=== PATIENT | female | born 1990 | race Caucasian/White ===

== ENCOUNTER 2018-12-04 13:03 | Emergency (ER) | payer OTHER ==
[~2018-12-04] VITALS: Ht 172.7 cm; Wt 81.7 kg
[2018-12-04] MEDS ORDERED: CELEXA10 MG PO (13:15)
[2018-12-04] MEDS ORDERED: FLONASE 0.05%50 MCG NASAL (13:15)
[2018-12-04] MEDS ORDERED: GABAPENTIN 100100 MG PO (13:15)
[2018-12-04] MEDS ORDERED: WELLBUTRIN 100100 MG PO (13:15)
[2018-12-04] MEDS ORDERED: AMOXICILLIN875 MG PO (13:25)
[2018-12-04] MEDS ORDERED: Magic Mouthwash SWISH&SPIT (13:25)
[2018-12-04] MEDS ORDERED: TUSSIONEX PENN115 ML PO (13:25)
[2018-12-04] MEDS ORDERED: ZOFRAN ODT4 MG PO (13:43)
[2018-12-04] MEDS ORDERED: AMOXICILLI400 MG/5 M PO (13:43)
[2018-12-04 13:46] VITALS: BP 99/59
== END 2018-12-04 13:46 | disposition home or self-care (01) ==
LOC: M.ERS 13:03
DX: J02.9 Acute pharyngitis, unspecified (principal)

== ENCOUNTER 2020-07-10 04:14 | Emergency (ER) | payer OTHER ==
[~2020-07-10] VITALS: Ht 170.2 cm; Wt 90.7 kg
[~2020-07-10 04:14] MED LIST: AMOXICILLI400 MG/5 M PO; AMOXICILLIN875 MG PO; CELEXA10 MG PO; FLONASE 0.05%50 MCG NASAL; GABAPENTIN 100100 MG PO; Magic Mouthwash SWISH&SPIT; TUSSIONEX PENN115 ML PO; WELLBUTRIN 100100 MG PO; ZOFRAN ODT4 MG PO
[2020-07-10] MEDS ORDERED: PNV 29-1 TABLE1 EACH PO (04:45)
[2020-07-10] MEDS ORDERED: ZYRTEC10 M5 PO (04:45)
[2020-07-10] MEDS ORDERED: WELLBUTRIN SR200 MG PO (04:45)
[2020-07-10 04:58] LABS: ABSOLUTE EOSINOPHILS 0.1 thou/uL (0.0-0.7); ABSOLUTE LYMPHOCYTES 2.2 thou/uL (0.8-5.3); ABSOLUTE MONOCYTES 0.7 thou/uL (0.0-1.2); ABSOLUTE NEUTROPHILS 7.7 thou/uL (1.6-8.1); BASOPHILS 0.4 %; EOSINOPHILS 1.4 %; HEMATOCRIT 35.1 % (37.0-47.0); HEMOGLOBIN 11.9 gm/dL (12.0-15.0); LYMPHOCYTES 20.2 %; MCH 30.2 pg (26.0-34.0); MCHC 33.8 g/dL (28.0-37.0); MCV 89.4 fL (80.0-100.0); MONOCYTES 6.6 %; MPV 8.5 fl. (7.2-11.1); NUCLEATED RBCS 0 /100WBC; PLATELET COUNT* 248 thou/uL (150-400); POLYS 71.4 %; RBC 3.92 mil/uL (4.20-5.00); RDW-CV 12.3 % (10.5-14.5); WBC 10.8 thou/uL (4.0-11.0)
[2020-07-10 05:08] LABS: CREATININE 0.9 mg/dL (0.6-1.3); POTASSIUM 3.3 mmol/L (3.5-5.1)
[2020-07-10 05:09] LABS: PROTIME 10.3 Seconds (9.20-11.50)
[2020-07-10 05:12] LABS: ALBUMIN 3.4 g/dL (3.4-5.0); TOTAL BILIRUBIN 0.3 mg/dL (<0.1-1.0); TOTAL PROTEIN 7.6 g/dL (6.4-8.2)
[2020-07-10 10:02] VITALS: BP 113/62
== END 2020-07-10 10:04 | disposition still patient (30) ==
LOC: M.ERS 04:14
PROVIDERS: Family Medicine
DX: O20.0 Threatened abortion (principal); Z3A.01 Less than 8 weeks gestation of pregnancy; Z90.49 Acquired absence of other specified parts of digestive tract

== ENCOUNTER → 2021-09-04 | Outpatient (CLI) | payer OTHER ==
[~2021-09-04] MED LIST changes: +PNV 29-1 TABLE1 EACH PO; +WELLBUTRIN SR200 MG PO; +ZYRTEC10 M5 PO
--- NOTE | 2021-09-04 14:23 | 2DMMODE ---
[place] [address] 2 D/M-MODE ECHOCARDIOGRAM Name: [facility]IE STARKS [id number] Admission: 09/04/21 Attend Phys: Carly Ward Discharge: Date of : 86 Date of Service: 09/04/21 1423 Report #: [id number] THIS REPORT FOR: cc: Carly Mckenna MD, Tisha Darice MD Blick, David R. MD [facility] ~ APPROVED REPORT Study performed: 09/04/2021 11:08:53 EXAM: Comprehensive 2D, Doppler, and color-flow Echocardiogram Patient Location: Out-Patient BSA: 1.96 HR: 74 bpm BP: 120/70 mmHg Other Information Study Quality: Excellent Indications Syncope 2D Dimensions IVSd: 10.12 (7-11mm) LVOT Diam: 20.23 (18-24mm) LVDd: 40.77 mm PWd: 8.88 (7-11mm) Ascending Ao: 26.21 (22-36mm) LVDs: 25.33 (25-40mm) Aortic Root: 26.30 mm Volumes Left Atrial Volume (Systole) LA ESV Index: 12.10 mL/m2 Aortic Valve AoV Peak Jae.: 1.34 m/s AO Peak Gr.: 7.16 mmHg LVOT Max P.10 mmHg AO Mean Gr.: 3.97 mmHg LVOT Mean P.50 mmHg LVOT Max V: 1.33 m/s AO V2 VTI: 25.29 cm LVOT Mean V: 0.86 m/s EM (VTI): 3.38 cm2 LVOT V1 VTI: 26.61 cm Mitral Valve E/A Ratio: 1.61 [place] [address] 2 D/M-MODE ECHOCARDIOGRAM Name: MAGGIE STARKS Room: [facility]#: [id number] Admission: 09/04/21 Attend Phys: Carly Ward Discharge: Date of : 86 Date of Service: 09/04/21 1423 Report #: [id number] MV Decel. Time: 192.69 ms MV E Max Jae.: 0.72 m/s MV PHT: 55.88 ms MVA (PHT): 3.94 cm2 TDI E/Lateral E': 4.80 E/Medial E': 4.50 Medial E' Jae.: 0.16 m/s Lateral E' Jae.: 0.15 m/s Pulmonary Valve PV Peak Jae.: 0.96 m/s PV Peak Gr.: 3.68 mmHg Left Ventricle The left ventricle is normal size. There is normal LV segmental wall motion. There is normal left ventricular wall thickness. Left ventricular systolic function is normal. The left ventricular ejection fraction is within the normal range. LVEF is 55-60%. The left ventricular diastolic function is normal. Right Ventricle The right ventricle is normal size. The right ventricular systolic function is normal. Atria The left atrium size is normal. The right atrium size is normal. Aortic Valve The aortic valve is normal in structure. No aortic regurgitation is present. There is no aortic valvular stenosis. Mitral Valve The mitral valve is normal in structure. There is trace mitral valve regurgitation noted. No evidence of mitral valve stenosis. Tricuspid Valve The tricuspid valve is normal in structure. There is no tricuspid valve regurgitation noted. Pulmonic Valve The pulmonary valve is normal in structure. There is no pulmonic valvular regurgitation. Great Vessels The aortic root is normal in size. IVC [place] [address] 2 D/M-MODE ECHOCARDIOGRAM Name: MAGGIE STARKS Room: [facility]#: [id number] Admission: 09/04/21 Attend Phys: Carly Ward Discharge: Date of : 86 Date of Service: 09/04/21 1423 Report #: [id number] collapses >50% with inspiration. Pericardium There is no pericardial effusion. <Conclusion> Left ventricular systolic function is normal. The left ventricular ejection fraction is within the normal range. <ELECTRONICALLY SIGNED> By: Herrera Maria MD, FACC 09/04/21 142 [id number] 142 Herrera Maria MD, FACC /INF
== END ==
LOC: M.CRD 09:54
PROVIDERS: ATTEND Family Medicine
DX: R55 Syncope and collapse (principal)